=== PATIENT | male | born 1980 | race Caucasian/White ===

== ENCOUNTER 2023-05-06 10:26 | Emergency (ER) | payer MEDICAID ==
[~2023-05-06] VITALS: Ht 154.9 cm; Wt 81.2 kg
[2023-05-06 10:30] VITALS: BP 118/94; PULSE 94; RESP 18; TEMP 98; O2SAT 99
[2023-05-06 10:45] VITALS: BP 136/85; PULSE 94; RESP 18; TEMP 98; O2SAT 99
[2023-05-06 11:05] LABS: BASOPHILS % (AUTO) 0.5 % (0.0-2.0); EOSINOPHILS % (AUTO) 0.1 % (0.0-4.0); HEMATOCRIT 47.3 % (36-52); HEMOGLOBIN 16.3 g/dL (12.0-18.0); LYMPHOCYTES # (AUTO) 1.9 K/uL (2.0-11.5); LYMPHOCYTES % (AUTO) 22.5 % (20.5-51.1); MEAN CORPUSCULAR HEMOGLOBIN 32 pg (27-31); MEAN CORPUSCULAR HGB CONC 35 g/dL (33-37); MEAN CORPUSCULAR VOLUME 91.3 fL (80-94); MONOCYTES # (AUTO) 0.4 K/uL (0.8-1.0); MONOCYTES % (AUTO) 5.2 % (1.7-9.3); NEUTROPHILS # (AUTO) 5.9 K/uL (1.8-7.7); NEUTROPHILS % (AUTO) 71.7 % (42.2-75.2); PLATELET COUNT (AUTO) 270 K/uL (140-450); RED BLOOD CELL COUNT(AUTO) 5.18 MIL/uL (4.20-6.10); RED CELL DISTRIBUTION WIDTH 14.5 % (11.6-13.7); WHITE BLOOD COUNT (AUTO) 8.3 K/uL (4.8-10.8)
[2023-05-06] MEDS: ONDANSETRON 4 MG/2 ML VIAL IVP ONE (11:16)
[2023-05-06] MEDS: MORPHINE SULFATE 4 MG/ML SYR IVP ONE (11:17)
[2023-05-06 11:32] LABS: ALANINE AMINOTRANSFERASE 94 U/L (12-78); ALBUMIN 4.1 g/dL (3.4-5.0); ALKALINE PHOSPHATASE 78 U/L (50-136); ASPARTATE AMINOTRANSFERASE 75 U/L (15-37); BILIRUBIN,DIRECT 0.1 mg/dL (0.0-0.3); TOTAL BILIRUBIN 0.5 mg/dL (0.0-1.0); TOTAL PROTEIN, SERUM 7.7 g/dL (6.4-8.2)
[2023-05-06] MEDS ORDERED: DICYCLOMINE HCL LIQUID 10 MG/5 ML UDC ONE (11:36)
[2023-05-06] MEDS ORDERED: ALUMINUM HYD/MAG/SIMETHICONE 30 ML UDC ONE (11:36)
[2023-05-06] MEDS: PANTOPRAZOLE 40 MG INJ VIAL IVP ONE (11:40)
[2023-05-06] MEDS: DICYCLOMINE HCL LIQUID 20 MG, ALUMINUM HYD/MAG/SIMETHICONE 30 ML, LIDOCAINE VISCOUS 2% ... PO ONE (11:41)
[2023-05-06 11:56] LABS: ANION GAP 18.5 (8-16); CALCIUM 8.4 mg/dL (8.5-10.1); CARBON DIOXIDE 23.2 mmol/L (21-32); CREATININE 0.9 mg/dL (0.6-1.3); POTASSIUM 3.7 mmol/L (3.5-5.1)
[2023-05-06 12:15] LABS: AMPHETAMINE, URINE POSITIVE ng/ml (NEG <=1000); BARBITURATE, URINE NEGATIVE ng/ml (NEG <=200); BENZODIAZEPINE, URINE NEGATIVE ng/mL (NEG <=200); CANNABINOID, URINE NEGATIVE ng/mL (NEG <=50); COCAINE, URINE NEGATIVE ng/mL (NEG <=300); OPIATE, URINE NEGATIVE ng/mL (NEG <=2000); PHENCYCLIDINE SCREEN,URINE NEGATIVE ng/mL (NEG <=25)
[2023-05-06] MEDS ORDERED: OMEP20EC11 PO (13:45)
[2023-05-06] MEDS ORDERED: MAG355OR2 PO (13:45)
== END 2023-05-06 14:12 | disposition home or self-care (01) ==
LOC: MED 10:26
DX: R07.89 Other chest pain (principal); K29.70 Gastritis, unspecified, without bleeding; F10.10 Alcohol abuse, uncomplicated; F15.90 Other stimulant use, unspecified, uncomplicated; R74.01 Elevation of levels of liver transaminase levels; Z71.6 Tobacco abuse counseling; Z79.899 Other long term (current) drug therapy; Y90.9 Presence of alcohol in blood, level not specified
CPT/HCPCS: 36415; 71045; 80048; 80076; 80305; 83690; 83880; 84484; 85025; 93005; 96374; 96375; 99285; C9113; J2270; J2405

== ENCOUNTER 2023-12-10 16:39 | Emergency (ER) | payer SELFPAY ==
[~2023-12-10] VITALS: Ht 152.4 cm; Wt 82.3 kg
[~2023-12-10 16:39] MED LIST: MAG355OR2 PO; OMEP20EC11 PO
[2023-12-10 16:44] VITALS: BP 113/88; PULSE 87; RESP 20; TEMP 97.8; O2SAT 96
[2023-12-10] MEDS: PANTOPRAZOLE 40 MG INJ VIAL IVP ONE (17:05)
[2023-12-10] MEDS: ONDANSETRON 4 MG/2 ML VIAL IVP ONE (17:06)
[2023-12-10] MEDS: NACL 0.9% 1,000 ML IV SCH (17:09)
[2023-12-10 17:22] VITALS: O2SAT 94
[2023-12-10 17:29] LABS: BASOPHILS % (AUTO) 0.2 % (0.0-2.0); EOSINOPHILS % (AUTO) 0.3 % (0.0-4.0); HEMATOCRIT 44.6 % (36-52); HEMOGLOBIN 15.1 g/dL (12.0-18.0); LYMPHOCYTES # (AUTO) 1.9 K/uL (2.0-11.5); LYMPHOCYTES % (AUTO) 29.5 % (20.5-51.1); MEAN CORPUSCULAR HEMOGLOBIN 31 pg (27-31); MEAN CORPUSCULAR HGB CONC 34 g/dL (33-37); MEAN CORPUSCULAR VOLUME 90.1 fL (80-94); MONOCYTES # (AUTO) 0.4 K/uL (0.8-1.0); MONOCYTES % (AUTO) 6.7 % (1.7-9.3); NEUTROPHILS % (AUTO) 63.3 % (42.2-75.2); PLATELET COUNT (AUTO) 249 K/uL (140-450); RED BLOOD CELL COUNT(AUTO) 4.95 MIL/uL (4.20-6.10); RED CELL DISTRIBUTION WIDTH 13.6 % (11.6-13.7); WHITE BLOOD COUNT (AUTO) 6.3 K/uL (4.8-10.8)
[2023-12-10 18:31] LABS: ANION GAP 13.9 (8-16); CALCIUM 8.4 mg/dL (8.5-10.1); CARBON DIOXIDE 27.2 mmol/L (21-32); POTASSIUM 3.1 mmol/L (3.5-5.1)
[2023-12-10 18:34] LABS: ALBUMIN 3.6 g/dL (3.4-5.0); BILIRUBIN,DIRECT 0.1 mg/dL (0.0-0.3); TOTAL BILIRUBIN 0.6 mg/dL (0.0-1.0); TOTAL PROTEIN, SERUM 7.2 g/dL (6.4-8.2)
[2023-12-10] MEDS: POTASSIUM CHLORIDE 10 MEQ TABER PO ONE ×2 (20:58)
[2023-12-10] MEDS ORDERED: FAMO-90 PO (20:59)
[2023-12-10 21:06] VITALS: BP 120/88; PULSE 82; RESP 18; TEMP 98; O2SAT 97
== END 2023-12-10 21:06 | disposition home or self-care (01) ==
LOC: MED 16:39
DX: K29.70 Gastritis, unspecified, without bleeding (principal); K92.0 Hematemesis; F10.10 Alcohol abuse, uncomplicated; Z79.899 Other long term (current) drug therapy; Y90.9 Presence of alcohol in blood, level not specified
CPT/HCPCS: 36415; 71045; 74177; 80048; 80076; 83690; 85025; 86886; 86900; 86901; 93005; 96361; 96374; 96375; 99285; J2405; J2470; J7030; Q0092; Q9967